=== PATIENT | male | born 1990 | race Caucasian/White ===

== ENCOUNTER 2025-08-08 16:49 | Emergency (ER) | payer SELFPAY ==
[2025-08-08 16:50] VITALS: BP 115/81; PULSE 77; RESP 20; TEMP 36.8; O2SAT 99; BMI 21.6
[2025-08-08 17:29] LABS: Mucous, Urine 0 SEEN /hpf (<or=2+)
--- NOTE | 2025-08-08 17:33 | EDS_ITS ---
HPI History of Present Illness Chief Complaint: Complaint Informant: patient Narrative Narrative: 35-year-old male was had 4 or 5 days of discomfort right behind the penis when he feels the need to urinate, and then some urethral burning after he is done urinating. Other than that no urinary symptoms such as frequency urgency or dysuria. No discharge when he is not urinating and no hematuria. He is still making a good stream of urine like usual. Denies abdominal pain, low back pain, fevers, nausea, vomiting. Sexual contact without protection recently but he is at low suspicion for GC or chlamydia but understands these are possible symptoms of that. He does not have a history of them that he knows of. He denies pain in his perineum with bowel movements or any other time. [facility] Medical History Encounter for screening for COVID-19 Acute bronchitis, unspecified Home Medications ?Medication ?Instructions ?Recorded ?Last Taken ?Type doxycycline monohydrate 100 mg 100 mg PO BID #14 CAPSU LES 08/08/25 Unknown Rx capsule Allergy/AdvReac Type Severity Reaction Status Date / Time No Known Allergies Allergy Verified 08/08/25 16:51 Social History Smoking Status: Current every day smoker ROS ROS ED Constitutional Constitutional ED: Denies chills or fever(s) Eyes Eyes: Denies change in vision or diplopia ENT ENT ED: Denies rhinorrhea or sore throat Cardiovascular Cardiovascular: Denies chest pain or palpitations Respiratory/Chest Respiratory/Chest: Denies cough or dyspnea Gastrointestinal Gastrointestinal: Denies abdominal pain, diarrhea, nausea or vomiting Genitourinary Genitourinary ED: Reports as per HPI and dysuria; Denies difficulty urinating, dribbling, hematuria, scrotal pain or scrotal swelling Musculoskeletal Musculoskeletal: Denies back pain or neck pain Integumentary Denies abscess or rash Neurologic Neurologic: Denies headache(s), paresthesias or weakness Psychiatric Psychiatric: Denies anxiety or suicidal thoughts EXAM Physical Exam Const Vital Signs: 08/08/25 16:50 Temperature 98.3 F Temperature Source Oral Pulse Rate 77 Respiratory Rate 20 H Blood Pressure 115/81 H Blood Pressure Mean 92 Pulse Ox 99 Oxygen Delivery Method Room Air Positive well nourished and well developed General Appearance ED: well developed and NAD HEENT Reports moist mucous membranes normocephalic and atraumatic Eyes PERRL and EOMs intact bilaterally Neck full ROM and supple Resp normal respiratory effort GI non-tender and non-distended Auscultation: normoactive bowel sounds Palpation: soft Back/Spine no CVA tenderness General Back: other FROM Extremity normal to inspection General Extremety ED: Negative for edema, pulses abnormal or tenderness General Extremity: Negative for edema or pulses abnormal Neuro oriented x3, CN's II-XII intact bilaterally and no sensory deficits noted Sensorium / Orientation: awake and alert Motor Exam: strength 5/5 throughout Skin no rashes or lesions noted and no wounds MDM MDM MDM Narrative Medical decision making narrative: Urinalysis is unremarkable with regards to infection, so I am going to treat him empirically for gonorrhea and chlamydia, we sent a test for that but will likely come back either later tonight or tomorrow morning. Follow-up advised if he does not get improvement and he is comfortable with that plan. Lab Data Attestation: I reviewed the patient's lab results. Labs: Laboratory Results - last 24 hr 08/08/25 16:58 Urine Color Yellow Urine Clarity Clear Urine pH 6.0 Ur Specific [place] 1.020 Urine Protein 15 H Urine Glucose (UA) Normal Urine Ketones Negative Urine Occult Blood 10 H Urine Nitrite Negative Urine Bilirubin Negative Urine Urobilinogen Normal Ur Leukocyte Esterase Negative Discharge Plan Triage Chief Complaint: Complaint ED Provider: Cyrus Jacobsen Dx/Rx/DC Orders Clinical Impression: STI (sexually transmitted infection) Instructions: ED Testing for Suspected STI Prescriptions: New doxycycline monohydrate 100 mg capsule 100 mg PO BID Qty: 14 0RF Discontinued Vicks DayQuil Cough 5 mg/5 mL syrup 10 mg PO Q6H PRN azithromycin 250 mg tablet 250 mg PO QDAY Qty: 6 0RF Rx Instructions: 2 tablets today, then 1 tablet daily on days 2 through 5 Primary Care Provider: DANYA RUELAS Referrals: Doctor,Your [Non-Staff] - 1 Week if not improving Print Language: Faroese Disposition Disposition: Home, Self Care
[2025-08-08 17:42] LABS: Color, Urine Yellow (Yellow); Glucose, Dipstick Normal (Normal); Ketone-Dipstick Negative (Negative); Leukocyte Esterase-Dipstick Negative /ul (Negative); Nitrite-Dipstick Negative (Negative); Occult Blood-Urine 10 /ul (Negative); Protein-Dipstick 15 mg/dl (Negative); Specific Gravity, Urine 1.020 (1.002-1.030); Urine Bilirubin Dipstick Negative (Negative)
[2025-08-08 18:14] VITALS: BP 113/71; PULSE 59; RESP 16; TEMP 37.2; O2SAT 98
[2025-08-08 18:51] LABS: Red Blood Cells-Urine 0-5 SEEN /hpf (0-5); Squamous Epithelial Cells - UA 0-5 SEEN /hpf (0-5)
== END 2025-08-08 18:33 | disposition home or self-care (01) ==
PROVIDERS: Emergency Provider Emergency Medicine; PCP Nurse Practitioner Family; Visit Provider Emergency Medicine
DX: A64 Unspecified sexually transmitted disease (principal); F17.200 Nicotine dependence, unspecified, uncomplicated
CPT/HCPCS: 81001; 96372; 99283